=== PATIENT | male | born 1975 | race Caucasian/White ===

== ENCOUNTER 2023-10-16 10:01 | Emergency (ER) | payer OTHER, SELFPAY ==
[2023-10-16 10:12] VITALS: BP 141/75; PULSE 60; RESP 18; TEMP 36.6; O2SAT 99
--- NOTE | 2023-10-16 10:36 | ED.EAR ---
HPI - Ear Problem General Chief complaint: Ear Stated complaint: ear pain Time Seen by Provider: 10/16/23 10:18 Source: patient and RN notes reviewed Mode of arrival: ambulatory Limitations: no limitations History of Present Illness HPI Narrative: Patient presents today with a 4 day history of left ear pain and brown drainage. Denies any additional symptoms to include cough, congestion, sore throat. He just returned from scuba diving several days ago. He currently rates his pain 1/10 and has been taking ibuprofen. After each dive, he uses EarShield ear drops, which consist of Roggen Oil, Mineral Oil, and Tea Tree Oil. Related Data Allergies Allergy/AdvReac Type Severity Reaction Status Date / Time No Known Allergies Allergy Verified 10/16/23 10:12 Review of Systems Review of Systems: CONSTITUTIONAL: Denies body aches, fever, chills, or sweats. EYES: Denies visual changes, redness, or discharge. ENT: Denies rhinorrhea, congestion, sore throat. + left ear pain CARDIOVASCULAR: Denies chest pain, palpitations, or edema. RESPIRATORY: Denies cough or dyspnea. GASTROINTESTINAL: Denies abdominal pain, nausea, vomiting, or diarrhea. GENITOURINARY: Denies dysuria or hematuria. SKIN: Denies rash, itching, or wounds. MUSCULOSKELETAL: Denies back pain, joint pain, or myalgia. NEUROLOGIC: Denies headache, numbness, tingling, or weakness. PSYCH: Denies depression or anxiety. PMFSH Comments At time of signature, I have reviewed and agree with nursing past medical, surgical, social and family history unless otherwise noted. Please see nursing chart for further information. There is no relevant family history pertinent to the presenting complaint Exam Narrative: GENERAL: Well-appearing, well-nourished, and in no acute distress. HEAD: Normocephalic, atraumatic. EYES: EOMI. No redness or drainage. Conjunctivae normal. ENT: Mucous membranes pink and moist. Nares clear. No rhinorrhea. Left ear: TM normal. Canal mildly erythematous and edematous. Small amount of blue green discharge in the canal. Right ear normal NECK: Normal AROM. CHEST: No respiratory distress. EXTREMITIES: Normal range of motion. No edema. SKIN: Warm, dry, no rash. Capillary refill normal. Normal skin turgor. NEURO: No focal deficits. Alert and oriented x3. Gait steady. PSYCH: Normal affect. No signs of depression or anxiety. Course Course Level of Care: Express Care Visit Vital Signs Vital signs: Vital Signs Temperature 97.9 F 10/16/23 10:12 Pulse Rate 60 10/16/23 10:12 Respiratory Rate 18 10/16/23 10:12 Blood Pressure 141/75 H 10/16/23 10:12 Pulse Oximetry 99 10/16/23 10:12 Oxygen Delivery Room Air 10/16/23 10:12 Temperature 97.9 F 10/16/23 10:12 Pulse Rate 60 10/16/23 10:12 Respiratory Rate 18 10/16/23 10:12 Blood Pressure 141/75 H 10/16/23 10:12 Pulse Oximetry 99 10/16/23 10:12 Oxygen Delivery Room Air 10/16/23 10:12 Reviewed Medical Decision Making MDM Narrative Medical decision making narrative: Patient has been diagnosed with left otitis externa. Prescription for Ciprodex sent to pharmacy. Anticipatory guidance given. Discussed using swimmer's ear drops instead of the oil based ear drops to help dry the water from his ear after diving. Differential Diagnosis Differential Diagnosis: Otitis media, otitis externa, ruptured TM, serous otitis, cerumen impaction Vital Signs Vital Signs: Vital Signs Temperature 97.9 F 10/16/23 10:12 Pulse Rate 60 10/16/23 10:12 Respiratory Rate 18 10/16/23 10:12 Blood Pressure 141/75 H 10/16/23 10:12 Pulse Oximetry 99 10/16/23 10:12 Oxygen Delivery Room Air 10/16/23 10:12 Temperature 97.9 F 10/16/23 10:12 Pulse Rate 60 10/16/23 10:12 Respiratory Rate 18 10/16/23 10:12 Blood Pressure 141/75 H 10/16/23 10:12 Pulse Oximetry 99 10/16/23 10:12 Oxygen Delivery Room Air 10/16/23 10:12 Critical Care Time
== END 2023-10-16 10:37 | disposition home or self-care (01) ==
PROVIDERS: Emergency Provider Nurse Practitioner; Referring Provider Emergency Medicine
DX: H60.92 Unspecified otitis externa, left ear (principal)
CPT/HCPCS: 99203; G0463